=== PATIENT | male | born 1990 | race African-American/Black ===

== ENCOUNTER 2016-10-26 11:55 | Emergency (ER) | payer OTHER ==
[~2016-10-26] VITALS: Ht 172.7 cm; Wt 93.9 kg
[~2016-10-26 11:55] MED LIST: AMITRIPTYLINE H25 M2 PO; GLIMEPIRIDE2 MG PO; JANUMET 50-1,01 EACH PO; LISINOPRIL-HCT1 EACH PO; [UNRECOGNIZED DRUG - SUPPLY] N
[2016-10-26 12:09] VITALS: BP 154/92
[2016-10-26] MEDS ORDERED: VITAMIN B-121000 MC3 PO (12:49)
--- NOTE | 2016-10-26 13:17 | ED EYE COMPLAINT ---
History of Present Illness General Chief Complaint: Eye Problems Stated Complaint: ?PINK EYE Source: patient Exam Limitations: no limitations Vital Signs & Intake/Output Vital Signs & Intake/Output Vital Signs Date Time Temp Pulse Resp B/P Pulse O2 O2 Flow FiO2 Ox Delivery Rate 10/26 1209 98.6 98 20 154/92 98 Room Air Allergies Coded Allergies: No Known Allergies (05/12/16) Reconcile Medications Amitriptyline HCl 25 MG TABLET 1 TAB PO QPM SLEEP (Reported) Cyanocobalamin (Vitamin B-12) 1,000 MCG TABLET 1 TAB PO DAILY SUPPLEMENT ( Reported) Erythromycin Base (Erythromycin) 5 MG/GRAM (0.5 %) OINT...G. 1 LARRY OPH 4XDP conjunctivitis apply 1 cm ribbon into the lower conjunctival sac Glimepiride 2 MG TABLET 1 TAB PO DAILY DM Lisinopril/Hydrochlorothiazide (Lisinopril-Hctz 20-12.5 MG Tab) 20 MG-12.5 MG TABLET 1 TAB PO DAILY htn Sitagliptin Phos/Metformin HCl (Janumet 50-1,000 MG Tablet) 50 MG-1,000 MG TABLET 1 TAB PO BID DM (Reported) Triage Note: PT TO ED C/O PINK EYE TO LEFT EYE. NOTICED THIS AM. Triage Nurses Notes Reviewed? yes HPI: 26-year-old male presenting with left eye and this discharge. Woke up yesterday morning with redness to left eye, mild associated yellow purulent drainage. Denies fevers, chills, visual changes, eye trauma, eye pain, headache, neck pain , neck stiffness, or focal neurologic symptoms. Patient works at daycare, multiple sick contacts similar symptoms (TAWNY SHARPE MD) Past History Travel History Traveled to [place] past 21 day No Medical History Any Pertinent Medical History? none Neurological: NONE EENT: NONE Cardiovascular: NONE Respiratory: NONE Gastrointestinal: NONE Hepatic: NONE Renal: NONE Musculoskeletal: NONE Psychiatric: NONE Endocrine: diabetes Blood Disorders: NONE Cancer(s): NONE GENERAL MATCHER/Reproductive: NONE Surgical History Surgical History: none Psychosocial History What is your primary language Italian Tobacco Use: Never used ETOH Use: denies use Illicit Drug Use: denies illicit drug use Family History Hx Contributory? No (TAWNY SHARPE MD) Review of Systems Review of Systems Constitutional: Reports: no symptoms. Eyes: Denies: blurred vision, photophobia. Ear: Reports: no symptoms. Nose: Reports: no symptoms. Mouth: Reports: no symptoms. Throat: Reports: no symptoms. Respiratory: Reports: no symptoms. Cardiovascular: Reports: no symptoms. GI: Reports: no symptoms. Genitourinary: Reports: no symptoms. Musculoskeletal: Reports: no symptoms. Skin: Reports: no symptoms. Neurological/Psychological: Reports: no symptoms. Hematologic/Endocrine: Reports: no symptoms. Immunologic/Allergic: Reports: no symptoms. All Other Systems: Reviewed and Negative (TAWNY SHARPE MD) Physical Exam General Appearance: well developed/nourished, no apparent distress, alert, awake General Inspection: left eye erythema and mild discharge General Inspection: normal inspection Physical Exam Head: atraumatic, normal appearance Ears: Bilateral: canal normal. Nose: normal inspection Mouth/Throat: normal mouth inspection, pharynx normal Neck: normal inspection, supple, full range of motion Comments: Right eye: No conjunctival injection or drainage Left eye: Mild conjunctival injection, dried yellow purulent exudate to bilateral upper and lower lashes, no visual changes (TAWNY SHARPE MD) Progress Differential Diagnosis: corneal abrasion, conjunctivitis, globe rupture Plan of Care: Physician MDM: 26 yo M presenting wtih atraumatic left eye redness and discharge. VSS, occular exam as above. DDx: Viral conjunctivitis, bacterial conjunctivitis, low concern for corneal abrasion or increased intraocular pressure. Given significant conjunctival injection and exudates with sick contacts, will cover with erythromycin eye ointment for possible bacterial conjunctivitis. Discharged with return to care precautions, plan and follow up with primary medical doctor in the next 2-3 days. Plan of care was discussed with the patient who expressed agreement and understanding. (TAWNY SHARPE MD) Departure Departure Disposition: HOME OR SELF CARE Condition: Stable Clinical Impression Primary Impression: Conjunctivitis Qualifiers: Conjunctivitis type: acute Acute conjunctivitis type: unspecified Laterality: left Qualified Code: H10.32 - Unspecified acute conjunctivitis, left eye Referrals: PATIENT HAS NO PRIMARY CARE DR (PCP/Family) Additional Instructions: Use erythromycin eye ointment for the next 5 days. Return to the ED for any new, worsening, or concerning symptoms. Departure Forms: Customer Survey General Discharge Information Prescriptions: Current Visit Scripts Erythromycin Base (Erythromycin) 1 LARRY OPH 4XDP #35 GM apply 1 cm ribbon into the lower conjunctival sac (DELL DOMINGO,TAWNY) Resident Co-Sign Statement Statement: ED Attending supervision documentation- [X] I saw and evaluated the patient. I have also reviewed all the pertinent lab results and diagnostic results. I agree with the findings and the plan of care as documented in the Resident's documentation. [X] I have reviewed the ED Record and agree with the Resident's documentation. [] Additions or exceptions (if any) to the Resident's note and plan are summarized below: [] (WHIT DOMINGO,JORGE Zamora)
[2016-10-26] MEDS ORDERED: ERYTHROMYCIN1 GM OPH (13:18)
== END 2016-10-26 13:26 ==
LOC: ERH 11:55
DX: H10.9 Unspecified conjunctivitis (principal)